=== PATIENT | male | born 1960 | race Caucasian/White ===

== ENCOUNTER 2021-03-24 11:19 | Emergency (ER) | payer OTHER ==
[2021-03-24 11:44] LABS: HEMOGLOBIN 15.8 gm/dl (14.0-17.5); RED BLOOD COUNT 4.25 M/UL (4.20-5.50); WHITE BLOOD COUNT 15.7 K/UL (4.5-11.0)
[2021-03-24 12:33] LABS: BUN/CREATININE RATIO 23 (0-10)
[2021-03-24] MEDS ORDERED: ELIQUIS5 MG PO (15:47)
[2021-03-24] MEDS ORDERED: AUGMENTIN 875-1 EACH PO (15:47)
== END 2021-03-24 17:35 | disposition home or self-care (01) ==
LOC: ER1 11:19
PROVIDERS: Family Medicine
DX: I26.99 Other pulmonary embolism without acute cor pulmonale (principal); E87.1 Hypo-osmolality and hyponatremia; E87.6 Hypokalemia; R00.0 Tachycardia, unspecified; Z20.822 Contact with and (suspected) exposure to COVID-19; F17.200 Nicotine dependence, unspecified, uncomplicated; Z72.89 Other problems related to lifestyle; Z88.0 Allergy status to penicillin
CPT/HCPCS: 0240U; 36600; 71045; 80053; 80307; 81001; 82550; 82553; 82803; 83605; 83735; 83880; 84100; 84484; 85025; 85610; 87040; 87070; 87086; 87205; 96374; 96375; 99285; J0696; J2930; J7030; Q9967